=== PATIENT | male | born 1975 | race African-American/Black ===

== ENCOUNTER 2022-09-27 00:51 | Day surgery (SDC) | payer OTHER, SELFPAY ==
--- NOTE | 2022-09-24 09:49 | PC.NURSE ---
Report to the Outpatient Waiting Room, entrance under the green pavilion located off [facility], at time __0600 on date __09/27/22 . Planned Procedure Time: 729 . Time changes happen often and if your time is changed the preop area will call you the afternoon before. - You and your visitor will be asked to self-screen and do not enter if you have any COVID symptoms. - Only one visitor is requested with a max of two and NO children visitors are allowed at this time. - The patient visitor may be requested to leave or wait in car when not with patient due to distancing restrictions. - A mask is optional within the hospital. Patients may have clear liquids (water, carbonated beverages, clear teas, apple juice) until 3 hours prior to surgery with a maximum of 20 ounces. - No food from midnight until time of surgery - Infants may have breast milk until 4 hours before surgery, infant formula 6 hours prior to surgery. - Children will be allowed to drink immediately following surgery. If applicable, please bring a bottle or sippy cup to assist with drinking. Juice, water, soda, and popsicles are readily available. For infants on formula, please bring formula the day of surgery. Pacifiers are allowed. Take the following medications with a SIP of water the morning of surgery: ____NONE Medications to discontinue per physician ___ALL VITAMINS AND SUPPLEMENTS 3 DAYS PRE OP Date to take last dose___09/23/22 Please no make-up, nail afghan, hairspray, perfume, deodorant, or body powder the day of surgery. No jewelry (including any body piercings) or valuables the day of surgery, leave them at home. Please take a shower or bath the night before, or the morning of, surgery with an antibacterial soap. Wear comfortable, loose fitting clothing. Children are encouraged to wear pajamas. - Jewelry must be removed prior to entering the operating room. Rings and piercings that are not removed may be cut off. - The hospital will not accept responsibility for valuables. - Please leave all valuables, including medications, at home the day of surgery. If you are going home after surgery, a licensed tow motor driver must drive you home. - NO public transportation without another adult if you receive anesthesia. - We recommend that an adult stay with you for 24 hours following discharge. - We also recommend that you do not drive, make important decision, drink alcoholic beverages, or take any drugs that were not prescribed by your health care provider for at least 24 hours after your discharge time. For Pediatric surgeries, we recommend two adults accompany the child home. Follow any additional instructions given to you from your surgeon. If you or anyone in your household have experienced Covid symptoms in the past week, please notify your surgeon or the nurse liaison at the phone number below for possible testing. Telephone instructions given [facility] and asked if any additional questions and then verbalized understanding. Patient advised to call surgeon office or pre surgery nurse liaison [phone] if any additional questions.
[2022-09-24 09:54] VITALS: BMI 31.9
[2022-09-27 06:13] VITALS: BP 138/83; PULSE 79; RESP 16; TEMP 36.2; O2SAT 100
[2022-09-27] MEDS: LACTATED RINGERS 1,000 ML 30 ML IV CONT (06:28)
--- NOTE | 2022-09-27 07:14 | WPDHPUPDATE1 ---
History and Physical Update Update Date/Time: 09/27/22 07:14 History and Physical has been reviewed, including an updated exam of the patient. There are NO changes in the patient's condition. Risks, benefits, and alternatives have been discussed and questions answered. Patient agrees to proceed with procedure.
--- NOTE | 2022-09-27 07:22 | WPDANESEPPF ---
Anes - Initial Pre Proc Eval Procedure: Operation Date: 09/27/22 07:30 Proposed Procedures p Excision Right Dorsal Wrist Ganglion Cyst - Aly Ybarra MD Date/Time: 09/27/22 07:22 Surgeon: Aly Ybarra MD Pre Op Diagnosis: right dorsal wrist ganglion cyst Patient Data Age: 47 Gender: M Height: 1.8 m Weight: 103 kg Last Vital Signs Temp 36.2 C L 09/27/22 06:13 Pulse 79 09/27/22 06:13 Resp 16 09/27/22 06:13 BP 138/83 09/27/22 06:13 Pulse Ox 100 09/27/22 06:13 O2 Del Method Room Air 09/27/22 06:13 Allergies Allergy/AdvReac Type Severity Reaction Status Date / Time No Known Allergies Allergy Mild Verified 09/24/22 09:43 Home Medications Medication Instructions Recorded Confirmed Type multivitamin 1 tablet PO DAILY 02/22/22 09/27/22 History niacin 50 mg tablet 50 mg PO DAILY 02/22/22 09/27/22 History Lactobacillus 1 cap PO DAILY 09/24/22 09/27/22 History acidophilus-Bifidobac.animalis 2.5 billion cell capsule (Daily Probiotic) magnesium 200 mg tablet 400 mg PO DAILY 09/24/22 09/27/22 History Patient hx anesthesia problems: none Family hx anesthesia problems: none Results Review: All pre-operative results and documents have been reviewed as part of the pre-operative evaluation. [facility]LY [facility] Past Medical History Medical History Deviated septum Intestinal obstruction Surgical History Surgical History History of laparotomy Family History Family History Mother Hypertension Family history of diabetes mellitus in first degree relative Father Family history of lung cancer Social History Social History Social History: Smoking status: Never smoker Second hand tobacco smoke exposure: No Alcohol intake: never Substance use: never Substance use type: does not use Living arrangements: with family Gender identity (if verbalized by the patient): Male Sexual Orientation (if Verbalized by the Patient): Straight or Heterosexual Spiritual care concerns: No Anes - Eval Final PreProcedure Day of Procedure 09/27/22 07:22 Patient weight: obese Heart: regular rate and rhythm Lungs: clear to auscultation Airway: Mallampati scale class II Neurological: alert and oriented Last oral intake: >/= 8 hours ASA classification: II Emergent: no Anesthetic plan: proceed Anesthesia type and monitoring: general GIVS and standard monitoring Results Review: All pre-operative results and documents have been reviewed as part of the pre-operative evaluation. Informed Consent: The patient's anesthetic plan and its attendant risks and benefits were discussed with the patient/family/POA. Questions were solicited and answers provided to the satisfaction of the patient/family/POA.
[2022-09-27] MEDS: BACITRACIN OINTMENT 15 GM TUBE 1 APPLIC TOPICAL (08:11)
[2022-09-27 08:20] VITALS: BP 100/51; PULSE 78; RESP 14; O2SAT 99
--- NOTE | 2022-09-27 08:29 | W.PM.PROC2 ---
Procedure Note - Detailed Date of Procedure 09/27/22 Pre-op Diagnosis right dorsal wrist ganglion cyst Post-op Diagnosis Same Procedure Performed Excision right dorsal wrist ganglion cyst Surgeon Aly Ybarra MD Assistant Professor In Family Studies [facility] Findings Ganglion cyst Description of Procedure The site of the mass on the right dorsal wrist was marked with the patient's consent the holding area. He was then taken to the operating room replaced supine the operating table. The patient was administered IV sedation. The right upper extremity was prepped and draped in usual fashion. The site was carefully marked once again for the actual incision and locally infiltrated with 2% lidocaine with epinephrine. A time-out was held and confirmed. The tourniquet was inflated to 250 mmHg. The transverse incision was made over the mass. The blood tinged mass was readily identified superficial to the extensor tendons. It was carefully dissected around the margins to its base at the radial carpal joint. It was easily avulsed at that point additional fluid could be noted to emanate from a single site and this area was cauterized. Also a 3-0 Ethibond suture was placed covering that site. The tourniquet was released in several bleeding points were cauterized. The subcutaneous tissue was repaired with 4-0 Monocryl. Wound closure was done with intradermal 4-0 Monocryl. The usual dressing was applied 3 the patient is discharge instructions wound care follow-up he has a prescription for hydrocodone 5/325 number 7. Estimated Blood Loss -1.00 Tourniquet Time 27 Drains No Packing No Pathology None sent Complications No immediate complications Condition Stable Disposition Same day
[2022-09-27 08:50] VITALS: BP 102/41; PULSE 75; RESP 14; O2SAT 98
[2022-09-27 09:20] VITALS: BP 119/83; PULSE 57; RESP 14
== END 2022-09-27 09:31 | disposition home or self-care (01) ==
PROVIDERS: PCP Family Medicine; Visit Provider Plastic Surgery
PROC: (CPT 25111; principal; 2022-09-27 07:30)
DX: M67.431 Ganglion, right wrist (principal); E66.9 Obesity, unspecified; Z68.31 Body mass index [BMI] 31.0-31.9, adult
CPT/HCPCS: 25111; A9270; J2250; J2405; J2704; J7120